=== PATIENT | female | born 1990 | race Caucasian/White ===

== ENCOUNTER 2017-12-10 14:31 | Emergency (ER) | payer MEDICAID | END 2017-12-10 15:30 | disposition home or self-care (01) | LOC: E/R 14:31 | DX: O99.89 Other specified diseases and conditions complicating pregnancy, childbirth and the puerperium (principal); M25.531 Pain in right wrist; Z3A.01 Less than 8 weeks gestation of pregnancy | CPT/HCPCS: 99283; Z7502 ==

== ENCOUNTER 2018-01-25 17:45 | Emergency (ER) | payer SELFPAY, MEDICAID | END 2018-01-25 18:56 | disposition home or self-care (01) | LOC: E/R 17:45 | DX: B37.2 Candidiasis of skin and nail (principal); L30.4 Erythema intertrigo | CPT/HCPCS: 99283 ==

== ENCOUNTER 2018-05-27 19:04 | Inpatient (IN) | payer MEDICAID ==
[2018-05-27 20:26] LABS: ADD MAN DIFF? NO
[2018-05-27 20:27] LABS: BASOPHILS % 0.1 % (0.0-2.0); EOSINOPHILS % 0.1 % (0.0-7.0); HEMATOCRIT 27.5 % (37.0-47.0); HEMOGLOBIN 8.4 g/dl (12.0-16.0); LYMPHOCYTES % 20.5 % (15.0-51.0); MEAN CORPUSCULAR HEMOGLOBIN 22.3 pg (29.0-33.0); MEAN CORPUSCULAR HGB CONC 30.5 g/dl (32.0-37.0); MEAN CORPUSCULAR VOLUME 73.1 fl (82.0-101.0); MEAN PLATELET VOLUME 9.3 fl (7.4-10.4); MONOCYTE # 0.7 10^3/ul (0.3-0.9); MONOCYTES % 4.5 % (0.0-11.0); NEUTROPHILS % 74.3 % (39.0-77.0); PLATELET COUNT 570 10^3/UL (140-415); RED BLOOD COUNT 3.76 10^6/ul (4.20-5.40); RED CELL DISTRIBUTION WIDTH 15.1 % (11.5-14.5)
[2018-05-27 20:27] LABS: WHITE BLOOD COUNT 14.8 10^3/ul (4.8-10.8)
[2018-05-27 20:47] LABS: ADD UMIC YES; ALANINE AMINOTRANSFERASE 19 IU/L (13-69); ALBUMIN 3.1 g/dl (3.3-4.9); ALBUMIN/GLOBULIN RATIO 0.83; ALKALINE PHOSPHATASE 120 IU/L (42-121); AMYLASE 67 U/L (11-123); ANION GAP 6 (5-13); ASPARTATE AMINO TRANSFERASE 12 IU/L (15-46); BILIRUBIN,INDIRECT 0.3 mg/dl (0-1.1); BILIRUBIN,TOTAL 0.3 mg/dl (0.2-1.3); BLOOD UREA NITROGEN 6 mg/dl (7-20); CALCIUM 8.6 mg/dl (8.4-10.2); CARBON DIOXIDE 23 mmol/L (21-31); CHLORIDE 108 mmol/L (97-110); CREATININE 0.47 mg/dl (0.44-1.00); GLUCOSE 102 mg/dl (70-220); LIPASE 41 U/L (23-300); POTASSIUM 3.7 mmol/L (3.5-5.1); SODIUM 137 mmol/L (135-144); TOTAL PROTEIN 6.8 g/dl (6.1-8.1); UR ASCORBIC ACID NEGATIVE (NEGATIVE); UR BACTERIA FEW /HPF (NONE SEEN); UR BILIRUBIN (Dip) NEGATIVE (NEGATIVE); UR BLOOD (Dip) NEGATIVE (NEGATIVE); UR CLARITY CLOUDY (CLEAR); UR COLOR YELLOW (YELLOW); UR GLUCOSE (Dip) NEGATIVE (NEGATIVE); UR KETONES (Dip) NEGATIVE (NEGATIVE); UR LEUKOCYTE ESTERASE (Dip) 3+ Leu/ul (NEGATIVE); UR MUCUS FEW /HPF (NONE SEEN); UR NITRITE (Dip) NEGATIVE (NEGATIVE); UR RBC 18 /HPF (0-5); UR SPECIFIC GRAVITY (Dip) 1.013 (1.003-1.030); UR SQUAMOUS EPITHELIAL CELL MANY /HPF (FEW); UR TOTAL PROTEIN (Dip) NEGATIVE (NEGATIVE); UR UROBILINOGEN (Dip) NEGATIVE (NEGATIVE); UR WBC > 182 /HPF (0-5)
[2018-05-27] MEDS ORDERED: DIPHENHYDRAMINE 25 MG CAP PO (22:30)
[2018-05-27] MEDS ORDERED: ACETAMINOPHEN 500 MG TAB PO (22:30)
[2018-05-27] MEDS ORDERED: AL HYDROX/MG HYDROX/SIMETH 30 ML CUP PO (22:30)
[2018-05-27] MEDS: SOD CHLORIDE 0.9% 500 ML IV (22:35)
[2018-05-27] MEDS: SOD CHLORIDE 0.9% 1,000 ML IV (23:17)
[2018-05-27] MEDS: ACETAMINOPHEN 1000MG/100ML IV 100 ML IVPB (23:40)
[2018-05-28] MEDS: DIPHENHYDRAMINE 50 MG INJ IV ×2 (00:10→23:48)
[2018-05-28] MEDS: CEFTRIAXONE 1 GM/50 ML (PMX) 50 ML IVPB ×2 (00:12→23:49)
[2018-05-28] MEDS: SOD CHLORIDE 0.9% 1,000 ML IV ×4 (03:01→23:48)
[2018-05-28] MEDS: HYDROmorphONE 1 MG/ML SYG IV (03:25)
[2018-05-28] MEDS: HYDROCODONE/APAP (5/325) TAB PO (03:49)
[2018-05-28] MEDS: ACETAMINOPHEN 325 MG TAB PO (07:37)
[2018-05-28] MEDS: FERROUS SULFATE (EC) 325 MG TAB PO ×2 (10:01→21:00)
[2018-05-28] MEDS: SENNA TAB PO (10:01)
[2018-05-28] MEDS: PRENATAL VITAMIN PO (10:01)
[2018-05-28] MEDS: HYDROCODONE/APAP (10/325) TAB PO ×2 (10:48→14:53)
[2018-05-28] MEDS: HYDROmorphONE 0.5 MG/0.5 ML SYG IV ×2 (12:38→17:42)
[2018-05-28] MEDS: ONDANSETRON 4 MG INJ IV (14:52)
[2018-05-28] MEDS ORDERED: morphine 4 MG/ML VIAL IV (18:54)
[2018-05-28 19:12] LABS: ADD MAN DIFF? NO
[2018-05-28 19:13] LABS: WHITE BLOOD COUNT 17.7 10^3/ul (4.8-10.8)
[2018-05-28 19:13] LABS: BASOPHILS % 0.2 % (0.0-2.0); EOSINOPHILS % 0.1 % (0.0-7.0); HEMATOCRIT 24.1 % (37.0-47.0); HEMOGLOBIN 7.6 g/dl (12.0-16.0); LYMPHOCYTES # 1.9 10^3/ul (0.8-2.9); LYMPHOCYTES % 10.9 % (15.0-51.0); MEAN CORPUSCULAR HGB CONC 31.5 g/dl (32.0-37.0); MEAN CORPUSCULAR VOLUME 72.8 fl (82.0-101.0); MEAN PLATELET VOLUME 9.1 fl (7.4-10.4); MONOCYTE # 0.9 10^3/ul (0.3-0.9); MONOCYTES % 5.1 % (0.0-11.0); NEUTROPHIL # 14.7 10^3/ul (1.6-7.5); NEUTROPHILS % 83.2 % (39.0-77.0); PLATELET COUNT 502 10^3/UL (140-415); RED BLOOD COUNT 3.31 10^6/ul (4.20-5.40)
[2018-05-28 19:33] LABS: LIPASE 83 U/L (23-300)
[2018-05-28 19:33] LABS: AMYLASE 88 U/L (11-123)
[2018-05-28 19:34] LABS: ALANINE AMINOTRANSFERASE 17 IU/L (13-69); ALBUMIN 2.7 g/dl (3.3-4.9); ALBUMIN/GLOBULIN RATIO 0.79; ALKALINE PHOSPHATASE 98 IU/L (42-121); ANION GAP 9 (5-13); ASPARTATE AMINO TRANSFERASE 14 IU/L (15-46); BILIRUBIN,INDIRECT 0.3 mg/dl (0-1.1); BILIRUBIN,TOTAL 0.3 mg/dl (0.2-1.3); CALCIUM 8.4 mg/dl (8.4-10.2); CARBON DIOXIDE 22 mmol/L (21-31); CHLORIDE 106 mmol/L (97-110); CREATININE 0.43 mg/dl (0.44-1.00); GLUCOSE 92 mg/dl (70-220); POTASSIUM 3.6 mmol/L (3.5-5.1); SODIUM 137 mmol/L (135-144); TOTAL PROTEIN 6.1 g/dl (6.1-8.1)
[2018-05-28 19:35] LABS: BLOOD UREA NITROGEN < 2 mg/dl (7-20)
[2018-05-29] MEDS ORDERED: HYDROmorphONE 0.5 MG/0.5 ML SYG (03:23)
[2018-05-29] MEDS: SOD CHLORIDE 0.9% 1,000 ML IV ×3 (07:05→19:56)
[2018-05-29] MEDS: PRENATAL VITAMIN PO (09:01)
[2018-05-29] MEDS: FERROUS SULFATE (EC) 325 MG TAB PO ×2 (09:01→21:41)
[2018-05-29] MEDS: SENNA TAB PO (09:01)
[2018-05-29] MEDS: HYDROCODONE/APAP (10/325) TAB PO ×2 (09:07→18:32)
[2018-05-29 18:48] LABS: ADD MAN DIFF? NO
[2018-05-29 18:50] LABS: BASOPHILS % 0.1 % (0.0-2.0); EOSINOPHILS % 0.1 % (0.0-7.0); HEMOGLOBIN 7.6 g/dl (12.0-16.0); LYMPHOCYTES # 2.1 10^3/ul (0.8-2.9); LYMPHOCYTES % 11.5 % (15.0-51.0); MEAN CORPUSCULAR HEMOGLOBIN 22.6 pg (29.0-33.0); MEAN CORPUSCULAR HGB CONC 30.4 g/dl (32.0-37.0); MEAN CORPUSCULAR VOLUME 74.2 fl (82.0-101.0); MEAN PLATELET VOLUME 9.2 fl (7.4-10.4); MONOCYTE # 1.1 10^3/ul (0.3-0.9); MONOCYTES % 6.2 % (0.0-11.0); NEUTROPHIL # 14.8 10^3/ul (1.6-7.5); NEUTROPHILS % 81.5 % (39.0-77.0); PLATELET COUNT 512 10^3/UL (140-415); RED BLOOD COUNT 3.37 10^6/ul (4.20-5.40); RED CELL DISTRIBUTION WIDTH 15.4 % (11.5-14.5)
[2018-05-29 18:50] LABS: WHITE BLOOD COUNT 18.2 10^3/ul (4.8-10.8)
[2018-05-29] MEDS: NITROFURANTOIN (SR) 100 MG CAP PO (21:22)
[2018-05-30] MEDS: DIPHENHYDRAMINE 50 MG INJ IV (00:14)
[2018-05-30] MEDS: CEFTRIAXONE 1 GM/50 ML (PMX) 50 ML IVPB (00:14)
[2018-05-30] MEDS: SOD CHLORIDE 0.9% 1,000 ML IV ×4 (03:31→16:58)
[2018-05-30 06:50] LABS: ADD MAN DIFF? NO
[2018-05-30 06:53] LABS: WHITE BLOOD COUNT 14.1 10^3/ul (4.8-10.8)
[2018-05-30 06:53] LABS: ABNORMAL IP MESSAGE 1; BASOPHILS % 0.1 % (0.0-2.0); EOSINOPHILS % 0.3 % (0.0-7.0); HEMATOCRIT 22.3 % (37.0-47.0); LYMPHOCYTES # 2.2 10^3/ul (0.8-2.9); LYMPHOCYTES % 15.5 % (15.0-51.0); MEAN CORPUSCULAR HEMOGLOBIN 22.7 pg (29.0-33.0); MEAN CORPUSCULAR HGB CONC 30.5 g/dl (32.0-37.0); MEAN CORPUSCULAR VOLUME 74.3 fl (82.0-101.0); MEAN PLATELET VOLUME 9.3 fl (7.4-10.4); MONOCYTE # 1.1 10^3/ul (0.3-0.9); NEUTROPHIL # 10.7 10^3/ul (1.6-7.5); NEUTROPHILS % 75.5 % (39.0-77.0); PLATELET COUNT 456 10^3/UL (140-415); RED CELL DISTRIBUTION WIDTH 15.2 % (11.5-14.5)
[2018-05-30 06:59] LABS: HEMOGLOBIN 6.8 g/dl (12.0-16.0); POSITIVE DIFF @See below
[2018-05-30] MEDS: HYDROCODONE/APAP (10/325) TAB PO (07:51)
[2018-05-30] MEDS: FERROUS SULFATE (EC) 325 MG TAB PO ×2 (08:56→21:19)
[2018-05-30] MEDS: PRENATAL VITAMIN PO (08:56)
[2018-05-30] MEDS: NITROFURANTOIN (SR) 100 MG CAP PO ×2 (08:56→21:19)
[2018-05-30] MEDS: SENNA TAB PO (08:56)
[2018-05-30] MEDS: SOD FERRIC GLUC COMPLX 125 MG in SOD CHLORIDE 0.9% 100 ML IVPB (20:23)
== END 2018-05-30 22:10 | disposition home or self-care (01) | DRG 833 ==
LOC: OBT 19:04 → PP1 05-28 00:56 → L-D 19:08 → OBT 22:00 → L-D 22:00
DX: O23.03 Infections of kidney in pregnancy, third trimester (principal); Z3A.28 28 weeks gestation of pregnancy
CPT/HCPCS: 76705; 76818; 80053; 81001; 82150; 83690; 85025; 87086

== ENCOUNTER 2018-05-31 18:35 | Outpatient (CLI) | payer MEDICAID ==
[2018-05-31] MEDS: SOD FERRIC GLUC COMPLX 125 MG in SOD CHLORIDE 0.9% 100 ML IVPB (20:17)
== END 2018-05-31 22:05 | disposition home or self-care (01) ==
LOC: OBT 18:35 → L-D 18:38 → OBT 22:05
DX: O99.013 Anemia complicating pregnancy, third trimester (principal); Z3A.29 29 weeks gestation of pregnancy
CPT/HCPCS: 36415; 96360; 96361

== ENCOUNTER 2018-08-09 02:30 | Inpatient (IN) | payer MEDICAID ==
[2018-08-09] MEDS ORDERED: CARBOPROST 250 MCG INJ IM ×2 (03:30→11:00)
[2018-08-09] MEDS ORDERED: BUTORPHANOL 2 MG INJ IV (03:30)
[2018-08-09] MEDS ORDERED: MISOPROSTOL 200 MCG TAB PR ×2 (03:30→11:00)
[2018-08-09] MEDS ORDERED: OXYTOCIN 30 UNITS/LR 500 ML IV ×2 (03:30→11:00)
[2018-08-09] MEDS ORDERED: LIDOCAINE 1% (MPF) 30 ML INJ INJ (03:30)
[2018-08-09 03:32] LABS: ADD MAN DIFF? NO
[2018-08-09 03:34] LABS: WHITE BLOOD COUNT 10.5 10^3/ul (4.8-10.8)
[2018-08-09 03:34] LABS: BASOPHILS % 0.2 % (0.0-2.0); EOSINOPHILS % 0.4 % (0.0-7.0); HEMATOCRIT 31.5 % (37.0-47.0); LYMPHOCYTES # 3.4 10^3/ul (0.8-2.9); LYMPHOCYTES % 32.8 % (15.0-51.0); MEAN CORPUSCULAR HEMOGLOBIN 22.8 pg (29.0-33.0); MEAN CORPUSCULAR HGB CONC 31.7 g/dl (32.0-37.0); MEAN CORPUSCULAR VOLUME 71.8 fl (82.0-101.0); MEAN PLATELET VOLUME 9.7 fl (7.4-10.4); MONOCYTE # 0.6 10^3/ul (0.3-0.9); MONOCYTES % 5.3 % (0.0-11.0); NEUTROPHIL # 6.4 10^3/ul (1.6-7.5); NEUTROPHILS % 60.9 % (39.0-77.0); PLATELET COUNT 476 10^3/UL (140-415); RED BLOOD COUNT 4.39 10^6/ul (4.20-5.40); RED CELL DISTRIBUTION WIDTH 19.7 % (11.5-14.5)
[2018-08-09 03:54] LABS: INR 0.83; PARTIAL THROMBOPLASTIN TIME 28.8 Sec (23.0-35.0); PROTIME 11.5 Sec (11.9-14.9); PT RATIO 0.9
[2018-08-09] MEDS ORDERED: FENTAnyl 2MCG/ML-ROPIV 0.2% 100 ML (03:56)
[2018-08-09] MEDS: LACTATED RINGER'S 1,000 ML IV ×2 (04:10→04:11)
[2018-08-09] MEDS ORDERED: ONDANSETRON 4 MG INJ IV (04:30)
[2018-08-09] MEDS ORDERED: NALOXONE (0.4 MG/ML) INJ IV (04:30)
[2018-08-09] MEDS ORDERED: DIPHENHYDRAMINE 50 MG INJ IV (04:30)
[2018-08-09] MEDS: FENTAnyl 2MCG/ML-ROPIV 0.2% 100 ML BAG EPI (04:35)
[2018-08-09 05:21] LABS: HEPATITIS B SURFACE ANTIGEN NEGATIVE (NEGATIVE)
[2018-08-09] MEDS: METHYLERGONOVINE 0.2 MG INJ IM (05:42)
[2018-08-09] MEDS: OXYTOCIN 30 UNITS/LR 500 ML IV ×2 (05:47→05:49)
[2018-08-09] MEDS: IBUPROFEN 600 MG TAB PO ×3 (07:44→17:52)
[2018-08-09] MEDS ORDERED: ZOLPIDEM 5 MG TAB PO (11:00)
[2018-08-09] MEDS ORDERED: OXYCODONE/ASPIRIN (4.88/325) TAB PO (11:00)
[2018-08-09] MEDS ORDERED: METHYLERGONOVINE 0.2 MG INJ IM (11:00)
[2018-08-09] MEDS: LANOLIN HPA 1 PKT TOP (12:20)
[2018-08-09] MEDS: BENZOCAINE 20% 56 ML SPRAY TOP (12:21)
[2018-08-09] MEDS: WITCH HAZEL/GLYCERIN PAD PR (12:21)
[2018-08-09 16:12] LABS: RAPID PLASMA REAGIN NONREACTIVE (NR)
[2018-08-09] MEDS: SENNA/DOCUSATE NA (8.6MG/50MG) TAB PO (21:33)
[2018-08-09] MEDS: OXYCODONE/ASPIRIN (4.88/325) TAB PO (21:34)
[2018-08-10] MEDS: IBUPROFEN 600 MG TAB PO ×3 (00:19→12:07)
[2018-08-10 06:20] LABS: ADD MAN DIFF? NO
[2018-08-10 06:25] LABS: BASOPHILS % 0.3 % (0.0-2.0); EOSINOPHILS # 0.1 10^3/ul (0.0-0.5); EOSINOPHILS % 0.6 % (0.0-7.0); HEMATOCRIT 30.7 % (37.0-47.0); HEMOGLOBIN 9.6 g/dl (12.0-16.0); LYMPHOCYTES # 4.3 10^3/ul (0.8-2.9); LYMPHOCYTES % 34.1 % (15.0-51.0); MEAN CORPUSCULAR HEMOGLOBIN 22.9 pg (29.0-33.0); MEAN CORPUSCULAR HGB CONC 31.3 g/dl (32.0-37.0); MEAN CORPUSCULAR VOLUME 73.3 fl (82.0-101.0); MEAN PLATELET VOLUME 9.8 fl (7.4-10.4); MONOCYTE # 0.7 10^3/ul (0.3-0.9); MONOCYTES % 5.2 % (0.0-11.0); NEUTROPHIL # 7.5 10^3/ul (1.6-7.5); NEUTROPHILS % 59.6 % (39.0-77.0); PLATELET COUNT 407 10^3/UL (140-415); RED BLOOD COUNT 4.19 10^6/ul (4.20-5.40); RED CELL DISTRIBUTION WIDTH 19.9 % (11.5-14.5)
[2018-08-10 06:25] LABS: WHITE BLOOD COUNT 12.7 10^3/ul (4.8-10.8)
[2018-08-10] MEDS: SENNA/DOCUSATE NA (8.6MG/50MG) TAB PO (09:10)
[2018-08-10] MEDS: OXYCODONE/ACETAMINOPHEN (5/325) TAB PO (09:22)
[2018-08-10] MEDS: INFLUENZA VIRUS VACCINE 0.5 ML (DISPENSING) IM* (12:09)
[2018-08-10] MEDS: DIPHTH/TET/ACEL PERTUSS (ADULT) 0.5 ML VIAL IM* (14:33)
== END 2018-08-10 17:01 | disposition home or self-care (01) | DRG 807 ==
LOC: OBT 02:30 → L-D 02:30 → OBT 02:52 → L-D 02:52 → PP1 08:31
PROVIDERS: Obstetrics & Gynecology
PROC: 10E0XZZ Delivery of Products of Conception, External Approach (ICD-10-PCS; principal; 2018-08-09)
DX: O77.0 Labor and delivery complicated by meconium in amniotic fluid (principal); Z37.0 Single live birth; Z3A.39 39 weeks gestation of pregnancy; Z23 Encounter for immunization
CPT/HCPCS: 62319; 85025; 85610; 85730; 86592; 86850; 86900; 86901; 87340; 88307; 90686; 90715; 99464